=== PATIENT | female | born 1965 | race Caucasian/White ===

== ENCOUNTER 2016-09-11 22:08 | Emergency (ER) | payer OTHER ==
[2016-09-11 22:27] VITALS: BP 170/94; PULSE 83; TEMP 98.1; BMI 29.0
[2016-09-11] MEDS ORDERED: traMADol HCL 50 MG TABLET PO ONE (23:12)
[2016-09-11] MEDS ORDERED: traMADol HCL 50 MG TABLET ONE (23:15)
--- NOTE | 2016-09-11 23:16 | PDOC ---
History of Present Illness - General History Source: Patient Exam Limitations: No Limitations - History of Present Illness Initial Comments: 09/11/16 23:16 <Cody Gallagher - Last Filed: 09/11/16 23:11> - General History Source: Patient Exam Limitations: No Limitations - History of Present Illness Initial Comments: 09/11/16 23:39 The patient is a 51-year-old female with no significant past medical history, and presents to the emergency department with right shoulder pain s/p an accident at her job several months ago. The pain is exacerbated when she is lifting her right arm to abduction. She presents solely for pain control, as she has not been able to see her PCP to obtain pain medication. She is scheduled for right shoulder surgery in the next few weeks. The patient denies any other recent trauma or pain. The patient denies fever, chills, nausea, vomit, diarrhea and constipation. She denies shortness of breath, headache, and dizziness. Allergies: No known drug allergies Past Surgical History: None reported Social History: Denies smoking, ETOH, and recreational drug use. PCP: Dr. William Cruz <Minda Mckay - Last Filed: 09/11/16 23:41> - General Chief Complaint: Pain Stated Complaint: SHOULDER PAIN RIGHT Time Seen by Provider: 09/11/16 23:09 Past History - Past Medical History Anemia: Yes Asthma: Yes Cancer: No Cardiac Disorders: No CVA: No COPD: No CHF: No Dementia: No Diabetes: No GI Disorders: No Disorders: No HTN: No Hypercholesterolemia: Yes Kidney Stones: Yes Liver Disease: No Seizures: No Thyroid Disease: No Other medical history: rt rotator cuff tear - Surgical History Abdominal Surgery: No Appendectomy: No Cardiac Surgery: No Cholecystectomy: No Lung Surgery: No Neurologic Surgery: No Orthopedic Surgery: No - Immunization History Immunization Up to Date: Yes (FLU UP TO DATE) - Psycho/Social/Smoking Cessation Hx Anxiety: No Suicidal Ideation: No Smoking History: Never smoked Have you smoked in the past 12 months: No Information on smoking cessation initiated: No Hx Alcohol Use: No Drug/Substance Use Hx: No Substance Use Type: None Hx Substance Use Treatment: No <Cody Gallagher - Last Filed: 09/11/16 23:11> <Minda Mckay - Last Filed: 09/11/16 23:41> - Past Medical History Allergies/Adverse Reactions: Allergies Allergy/AdvReac Type Severity Reaction Status Date / Time No Known Drug Allergies Allergy Verified 09/11/16 22:18 Home Medications: Ambulatory Orders Simvastatin [Zocor -] 40 mg PO HS 08/27/13 Albuterol Sulfate Inhaler - [Ventolin HFA Inhaler -] 2 inh IH Q4H PRN #1 inh Hydrochlorothiazide [Hctz -] 25 mg PO DAILY 09/11/16 Tramadol HCl [Ultram -] 50 mg PO Q6H #20 tablet MDD 4 09/11/16 Review of Systems - Review of Systems Able to Perform ROS?: Yes Comments:: 09/11/16 23:40 CONSTITUTIONAL: Absent: fever, chills, diaphoresis, generalized weakness, malaise, loss of appetite HEENT: Absent: rhinorrhea, nasal congestion, throat pain, throat swelling, difficulty swallowing, mouth swelling, ear pain, eye pain, visual Changes CARDIOVASCULAR: Absent: chest pain, syncope, palpitations, irregular heart rate, lightheadedness , peripheral edema RESPIRATORY: Absent: cough, shortness of breath, dyspnea with exertion, orthopnea, wheezing, stridor, hemoptysis GASTROINTESTINAL: Absent: abdominal pain, abdominal distension, nausea, vomiting, diarrhea, constipation, melena, hematochezia GENITOURINARY: Absent: dysuria, frequency, urgency, hesitancy, hematuria, flank pain, genital pain MUSCULOSKELETAL: Present: (+) right shoulder pain Absent: joint swelling SKIN: Absent: rash, itching, pallor HEMATOLOGIC/IMMUNOLOGIC: Absent: easy bleeding, easy bruising, lymphadenopathy, frequent infections ENDOCRINE: Absent: unexplained weight gain, unexplained weight loss, heat intolerance, cold intolerance NEUROLOGIC: Absent: headache, focal weakness or paresthesias, dizziness, unsteady gait, seizure, mental status changes, bladder or bowel incontinence PSYCHIATRIC: Absent: anxiety, depression, suicidal or homicidal ideation, hallucinations. <Minda Mckay - Last Filed: 09/11/16 23:41> *Physical Exam - Vital Signs Last Vital Signs Temp Pulse Resp BP Pulse Ox 98.1 F 83 16 170/94 99 09/11/16 22:21 09/11/16 22:21 09/11/16 22:21 09/11/16 22:21 09/11/16 22:21 <Cody Gallagher - Last Filed: 09/11/16 23:11> - Vital Signs Last Vital Signs Temp Pulse Resp BP Pulse Ox 98.1 F 83 16 170/94 99 09/11/16 22:21 09/11/16 22:21 09/11/16 22:21 09/11/16 22:21 09/11/16 22:21 - Physical Exam Comments: 09/11/16 23:40 GENERAL: Well developed, well nourished. Awake and alert. No acute distress. HEENT: Normocephalic, atraumatic. PERRLA, EOMI. No conjunctival pallor. Sclera are non- icteric. Moist mucous membranes. Oropharynx is clear. NECK: Supple. Full ROM. No JVD. Carotid pulses 2+ and symmetric, without bruits. No thyromegaly. No lymphadenopathy. CARDIOVASCULAR: Regular rate and rhythm. No murmurs, rubs, or gallops. Distal pulses are 2+ and symmetric. PULMONARY: No evidence of respiratory distress. Lungs clear to auscultation bilaterally. No wheezing, rales or rhonchi. ABDOMINAL: Soft. Non-tender. Non-distended. No rebound or guarding. No organomegaly. Normoactive bowel sounds. MUSCULOSKELETAL Normal range of motion at all joints. No bony deformities or tenderness. No CVA tenderness. EXTREMITIES: (+) Tenderness diffusely on the right shoulder. No cyanosis. No clubbing. No edema. SKIN: Warm and dry. Normal capillary refill. No rashes. No jaundice. NEUROLOGICAL: Alert, awake, appropriate. Cranial nerves 2-12 intact. No deficits to light touch and temperature in face, upper extremities and lower extremities. No motor deficits in the in face, upper extremities and lower extremities. Normoreflexic in the upper and lower extremities. Normal speech. Toes are down-going bilaterally. Gait is normal without ataxia. PSYCHIATRIC: Cooperative. Good eye contact. Appropriate mood and affect. <Minda Mckay - Last Filed: 09/11/16 23:41> ED Treatment Course - Medications Given in the ED: ED Medications Discontinued Medications Generic Name Dose Route Start Last Admin Trade Name Freq PRN Reason Stop Dose Admin Tramadol HCl 50 mg 09/11/16 23:12 09/11/16 23:18 Ultram - PO 09/11/16 23:13 50 mg ONCE ONE Administration <Minda Mckay - Last Filed: 09/11/16 23:41> Medical Decision Making - Medical Decision Making 09/11/16 23:12 Dr. Gallagher: The scribe's documentation has been prepared under my direction and personally reviewed by me in its entirery. I confirm that the note above accurately reflects all work, treatment, procedures, and medical decision making performed by me. <Cody Gallagher - Last Filed: 09/11/16 23:11> *DC/Admit/Observation/Transfer - Discharge Dispostion Admit: No <Cody Gallagher - Last Filed: 09/11/16 23:11> - Attestations Scribe Attestion: 09/11/16 23:40 Documentation prepared by Minda Mckay, acting as medical affairs manager for Cody Gallagher DO. <Minda Mckay - Last Filed: 09/11/16 23:41> Diagnosis at time of Disposition: Right shoulder pain Qualifiers: Chronicity: chronic Qualified Code(s): M25.511 - Pain in right shoulder - Discharge Dispostion Disposition: HOME Condition at time of disposition: Stable - Prescriptions Prescriptions: Tramadol HCl [Ultram -] 50 mg PO Q6H #20 tablet MDD 4 - Referrals Referrals: William Cruz MD [Primary Care Provider] - - Patient Instructions Printed Discharge Instructions: DI for Shoulder Pain
== END 2016-09-11 23:23 | disposition home or self-care (01) ==
LOC: JER 22:08
DX: Z76.0 Encounter for issue of repeat prescription (principal); M25.511 Pain in right shoulder; J45.909 Unspecified asthma, uncomplicated; E78.00 Pure hypercholesterolemia, unspecified
CPT/HCPCS: 99282-25

== ENCOUNTER 2017-06-24 23:37 | Emergency (ER) | payer OTHER ==
[2017-06-25] VITALS: TEMP 98.3; BMI 31.8
--- NOTE | 2017-06-25 00:14 | PDOC ---
History of Present Illness - History of Present Illness Initial Comments: 06/25/17 00:23 The patient is a 52 year old female with history of hypertension, hyperlipidemia , who presents to the ED complaining of pleuritic, midsternal chest tightness that began today. The patient denies any fever or chills. She denies any palpitations or peripheral edema. Patient is noted to be hypertensive to 169/80 on ED evaluation. She states she has been medication compliant. No headache, visual changes, or paresthesias. PCP: Dr. Cruz. <Anuradha Guerrero - Last Filed: 06/25/17 00:23> <Nelda Gao - Last Filed: 06/25/17 04:07> - General Chief Complaint: Chest Pain Stated Complaint: CHEST PAIN Time Seen by Provider: 06/25/17 00:00 Past History <Anuradha Guerrero - Last Filed: 06/25/17 00:23> - Past Medical History Anemia: Yes Asthma: Yes Cancer: No Cardiac Disorders: No CVA: No COPD: No CHF: No Dementia: No Diabetes: No GI Disorders: No Disorders: No HTN: No Hypercholesterolemia: Yes Kidney Stones: Yes Liver Disease: No Seizures: No Thyroid Disease: No - Surgical History Abdominal Surgery: No Appendectomy: No Cardiac Surgery: No Cholecystectomy: No Lung Surgery: No Neurologic Surgery: No Orthopedic Surgery: No - Immunization History Immunization Up to Date: Yes (FLU UP TO DATE) - Suicide/Smoking/Psychosocial Hx Smoking History: Never smoked Have you smoked in the past 12 months: No Information on smoking cessation initiated: No Hx Alcohol Use: No Drug/Substance Use Hx: No Substance Use Type: None Hx Substance Use Treatment: No <Nelda Gao - Last Filed: 06/25/17 04:07> - Past Medical History Allergies/Adverse Reactions: Allergies Allergy/AdvReac Type Severity Reaction Status Date / Time No Known Drug Allergies Allergy Verified 06/24/17 23:59 Home Medications: Ambulatory Orders Simvastatin [Zocor -] 40 mg PO HS 08/27/13 Albuterol Sulfate Inhaler - [Ventolin HFA Inhaler -] 2 inh IH Q4H PRN #1 inh Hydrochlorothiazide [Hctz -] 25 mg PO DAILY 09/11/16 Tramadol HCl [Ultram -] 50 mg PO Q6H #20 tablet MDD 4 09/11/16 Azithromycin [Zithromax Tri-Amauri (3 DAYS) -] 500 mg PO DAILY #3 tablet 06/25/17 Review of Systems - Review of Systems Able to Perform ROS?: Yes Comments:: 06/25/17 00:26 GENERAL/CONSTITUTIONAL: No fever or chills. No weakness. HEAD, EYES, EARS, NOSE AND THROAT: No change in vision. No ear pain or discharge. No sore throat. CARDIOVASCULAR: +Pleuritic chest pain, mild SOB. No palpitations or peripheral edema. RESPIRATORY: No cough, wheezing, or hemoptysis. GASTROINTESTINAL: No nausea, vomiting, diarrhea or constipation. GENITOURINARY: No dysuria, frequency, or change in urination. MUSCULOSKELETAL: No joint or muscle swelling or pain. No neck or back pain. SKIN: No rash NEUROLOGIC: No headache, vertigo, loss of consciousness, or change in strength/ sensation. ENDOCRINE: No increased thirst. No abnormal weight change. HEMATOLOGIC/LYMPHATIC: No anemia, easy bleeding, or history of blood clots. ALLERGIC/IMMUNOLOGIC: No hives or skin allergy. <Anuradha Guerrero - Last Filed: 06/25/17 00:23> *Physical Exam - Vital Signs Last Vital Signs Temp Pulse Resp BP Pulse Ox 98.3 F 74 18 171/99 99 06/24/17 23:59 06/24/17 23:59 06/24/17 23:59 06/24/17 23:59 06/24/17 23:59 - Physical Exam Comments: 06/25/17 00:27 GENERAL: Awake, alert, and fully oriented, in no acute distress HEAD: No signs of trauma EYES: PERRLA, EOMI, sclera anicteric, conjunctiva clear ENT: Auricles normal inspection, hearing grossly normal, nares patent, oropharynx clear without exudates. Moist mucosa NECK: Normal ROM, supple, no lymphadenopathy, JVD, or masses LUNGS: Breath sounds equal, clear to auscultation bilaterally. No wheezes, and no crackles HEART: Regular rate and rhythm, normal S1 and S2, no murmurs, rubs or gallops ABDOMEN: Soft, nontender, normoactive bowel sounds. No guarding, no rebound. No masses EXTREMITIES: Normal range of motion, no edema. No clubbing or cyanosis. No cords, erythema, or tenderness NEUROLOGICAL: Cranial nerves II through XII grossly intact. Normal speech, normal gait SKIN: Warm, Dry, normal turgor, no rashes or lesions noted. <Anuradha Guerrero - Last Filed: 06/25/17 00:23> - Vital Signs Last Vital Signs Temp Pulse Resp BP Pulse Ox 98.3 F 74 18 171/99 99 06/24/17 23:59 06/24/17 23:59 06/24/17 23:59 06/24/17 23:59 06/24/17 23:59 <Nelda Gao - Last Filed: 06/25/17 04:07> ED Treatment Course - LABORATORY CBC & Chemistry Diagram: 06/25/17 00:34 06/25/17 00:34 <Nelda Gao - Last Filed: 06/25/17 04:07> Medical Decision Making - Medical Decision Making 06/25/17 04:05 Pt comes with SOB and javad tightness x 2 days. Pt has high BP. She states that she takes her HTN meds (HCTZ 25mg) as prescribed. She has elevated BP today. We will treat with diovan in the ER. Pt's CXR has increased markings bilaterally. Pt will be treated with zpak for an atypical pneumonia. She can follow with her PMD. 06/25/17 04:06 Pt's cardiac enzymes are normal. Pt's WBC count is normal also. Labs normal. <Nelda Gao - Last Filed: 06/25/17 04:07> *DC/Admit/Observation/Transfer - Attestations Scribe Attestion: 06/25/17 00:28 Documentation prepared by Anuradha Guerrero, acting as medical laboratory technicians for Nelda Gao MD. <Anuradha Guerrero - Last Filed: 06/25/17 00:23> - Discharge Dispostion Admit: No <Nelda Gao - Last Filed: 06/25/17 04:07> Diagnosis at time of Disposition: Atypical pneumonia - Discharge Dispostion Disposition: HOME Condition at time of disposition: Stable - Prescriptions Prescriptions: Azithromycin [Zithromax Tri-Amauri (3 DAYS) -] 500 mg PO DAILY #3 tablet - Referrals Referrals: William Cruz MD [Primary Care Provider] - - Patient Instructions Printed Discharge Instructions: DI for Atypical Chest Pain, DI for Atypical Pneumonia
[2017-06-25] MEDS ORDERED: VALSARTAN 40 MG TABLET (FP) PO ONE (00:23)
[2017-06-25 00:49] LABS: BASOPHIL 0.3 % (0-2.0); EOSINOPHIL 1.3 % (0-4.5); MCH 29.9 pg (25.7-33.7); MCHC 33.5 g/dl (32.0-36.0); MEAN CELL VOLUME 89.3 fl (80-96); MEAN PLT VOLUME 8.3 fl (7.5-11.1); NEUTROPHILS 55.7 % (42.8-82.8); PLATELET COUNT 246 K/MM3 (134-434); RDW 13.6 % (11.6-15.6); WHITE BLOOD COUNT 6.1 K/mm3 (4.0-10.0)
[2017-06-25 01:23] LABS: ALBUMIN 3.6 g/dl (3.4-5.0); ANION GAP 9 (8-16); CALCIUM 8.1 mg/dL (8.5-10.1); CO2 26 mmol/L (21-32); CREATININE 0.6 mg/dL (0.55-1.02); GLUCOSE,RANDOM 102 mg/dL (74-106); SGOT/AST 27 U/L (15-37); SGPT/ALT 36 U/L (12-78)
[2017-06-25] MEDS ORDERED: ALBUTEROL SO4 2.5/IPRATROPIUM 0.5 INH SOL 3 ML VIAL.NEB. NEB ONE (01:23)
[2017-06-25 01:27] LABS: ALK PHOS 75 U/L (45-117); BILIRUBIN,TOTAL 0.6 mg/dL (0.2-1.0); CPK 210 IU/L (26-192); TOT PROT 6.7 g/dl (6.4-8.2); TROPONIN I < 0.02 ng/ml (0.00-0.05)
[2017-06-25] MEDS ORDERED: AZITHROMYCIN 250 MG TABLET PO ONE (03:25)
[2017-06-25] MEDS ORDERED: AZITHROMYCIN 250 MG TABLET ONE (03:26)
[2017-06-25 03:27] VITALS: BP 158/89; PULSE 76
--- NOTE | 2017-06-26 07:10 | EKG ---
Test Reason : Blood Pressure : / mmHG Vent. 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
== END 2017-06-25 03:27 | disposition home or self-care (01) ==
LOC: JER 23:37
PROC: 3E0F7GC Introduction of Other Therapeutic Substance into Respiratory Tract, Via Natural or Artificial Opening (ICD-10-PCS; principal; 2017-06-24)
DX: J18.9 Pneumonia, unspecified organism (principal); D64.9 Anemia, unspecified; E78.00 Pure hypercholesterolemia, unspecified; Z87.442 Personal history of urinary calculi
CPT/HCPCS: 36415; 71020-TC; 80053; 82550; 82553; 84484; 85025; 93005; 93010; 94640; 99282-25

== ENCOUNTER 2018-04-26 07:43 | Day surgery (SDC) | payer OTHER ==
[2018-04-25 15:03] VITALS: BMI 31.8
--- NOTE | 2018-04-26 08:02 | HP ---
[facility]ellite [facility] - Chief Complaint Chief Complaint: right knee pain - Past Medical History Allergies/Adverse Reactions: Allergies Allergy/AdvReac Type Severity Reaction Status Date / Time No Known Drug Allergies Allergy Verified 04/25/18 15:04 ...LMP: 01/01/12 ...LMP Comment: mid march-irregular - Current Medications Current Medications: Home Medications Medication Instructions Recorded Simvastatin [Zocor -] 40 mg PO HS 08/27/13 Albuterol Sulfate Inhaler - 2 inh IH Q4H PRN #1 inh 12/24/14 [Ventolin HFA Inhaler -] Hydrochlorothiazide [Hctz -] 25 mg PO DAILY 09/11/16 Azithromycin [Zithromax Tri-Amauri (3 500 mg PO DAILY #3 tablet 06/25/17 DAYS) -] Oxycodone HCl/Acetaminophen 1 tab PO Q6H #20 tablet MDD 4 04/26/18 [Percocet 5-325 mg Tablet] Satellite Physical Exam - Physical Examination General Appearance: Well Nourished, Well Developed, Alert & Oriented x3 ENT: Clear Lung: Normal air movement Heart: Regular rate & rhythm Extremities: Other (right knee- + swelling, + ttp, decr rom, + mcmurrays, nvi MRI + mmt, djd) Neurological: Intact, Alert, Oriented Satellite Impression/Plan - Impression/Plan Impression: right knee internal derangement Operative Procedure: right knee arthroscopy Date to be Performed: 04/26/18
[2018-04-26] MEDS ORDERED: MIDAZOLAM HCL 2 MG/2 ML SINGLE DOSE VIAL ONE ×2 (08:51→10:17)
[2018-04-26] MEDS ORDERED: PROPOFOL 20 ML ONE ×2 (08:51→10:17)
[2018-04-26] MEDS ORDERED: ONDANSETRON 4 MG/2 ML VIAL ONE (10:17)
[2018-04-26] MEDS ORDERED: DEXAMETHASONE SOD PHOSPHATE 4 MG/1 ML VIAL ONE (10:17)
[2018-04-26] MEDS ORDERED: ONDANSETRON 4 MG/2 ML VIAL IVPUSH PRN (10:29)
[2018-04-26] MEDS ORDERED: oxyCODONE HCL 5 MG TABLET PO PRN (10:29)
[2018-04-26] MEDS ORDERED: LACTATED RINGERS SOLUTION 1,000 ML IV SCH (10:30)
[2018-04-26] MEDS ORDERED: LIDOCAINE 1%/EPI 1:100000 (20 ML MULTI DOSE VIAL) ONE (10:33)
[2018-04-26] MEDS ORDERED: BUPIVACAINE HCL/PF 0.75% 10 ML VIAL ONE (10:33)
[2018-04-26] MEDS ORDERED: BUPIVACAINE HCL/PF 0.75% 10 ML VIAL NR ONE (11:12)
[2018-04-26] MEDS ORDERED: LIDOCAINE 1%/EPI 1:100000 (20 ML MULTI DOSE VIAL) IJ ONE (11:12)
--- NOTE | 2018-04-26 11:25 | OP ---
Operative Note - Note: Operative Date: 04/26/18 Pre-Operative Diagnosis: internal derangement right knee Operation: arthroscopy right knee with partial medial meniscectomy and chondroplasty of the MFC Post-Operative Diagnosis: Same as Pre-op Surgeon: Wild Allen Anesthesia: General Estimated Blood Loss (mls): 0 Operative Report Dictated: Yes
[2018-04-26] MEDS ORDERED: KETOROLAC TROMETHAMINE 30 MG/1 ML VIAL ONE (11:50)
[2018-04-26] MEDS ORDERED: KETOROLAC TROMETHAMINE 30 MG/1 ML VIAL IVPUSH ONE (11:57)
[2018-04-26 12:31] VITALS: TEMP 98.2
[2018-04-26 13:17] VITALS: BP 130/81; PULSE 75
--- NOTE | 2018-04-27 09:15 | OP ---
DATE OF OPERATION: 04/26/2018 PREOPERATIVE DIAGNOSIS: Internal derangement or right knee. POSTOPERATIVE DIAGNOSIS: Internal derangement or right knee. PROCEDURE: Arthroscopy, right knee, with partial medial meniscectomy, chondroplasty of the medial femoral condyle. SURGICAL ATTENDING: Wild Allen MD ANESTHESIA: General with LMA. CLOSURE: 4-0 nylon. COMPLICATIONS: None. CONDITION: To recovery room in stable condition. DESCRIPTION OF OPERATIVE PROCEDURE: Patient was taken to the operating room on April 26, 2018. General anesthesia with LMA was administered by the anesthesiologist. Right lower extremity was prepped and draped in usual sterile fashion. The medial lateral infrapatellar portal sites were infiltrated with 1% Xylocaine with epinephrine. Both portals were then made with a 15 blade blunt trocar. The scope was placed in the lateral infrapatellar portal and up into the suprapatellar pouch. The knee was inflated with a cocktail of 10 mL of 1% Xylocaine, 10 mL of 0.5% Marcaine, 20 mL of arthroscopic saline. This was allowed to sit in the knee for 2 minutes before proceeding. The pouch was visualized to be clean. The medial and lateral gutters were visualized to be clean. The undersurface of the patella and trochlea were basically intact. With valgus stress on the knee the medial compartment was entered. On the medial meniscus, a complex tear of the posterior horn was debrided back to a smooth stable meniscal tissue with the meniscal biter and arthroscopic shaver. The medial femoral condyle was found to have a small nickel-sized grade 4 lesion at around 30 to 40 degrees of flexion. This was abraded, to have some bleeding bone, and articular cartilage was debrided using the shaver. Rest of the medial femoral condyle was intact as was the medial tibial plateau. At 90 degrees, the ACL was visualized and found to be intact. In the figure 4 position, the lateral compartment was entered. Lateral meniscus was visualized, probed and found to be intact. The lateral femoral condyle was run and found to be intact as was the lateral tibial plateau. The knee was irrigated with copious amounts of irrigation. The knee was drained of its fluid. The knee was inflated with 20 mL of 0.5% Marcaine for postoperative analgesia through the trocar. Both portals were then closed using 4-0 nylon suture. A sterile pressure dressing was applied. Patient was awakened from anesthesia and transferred to recovery room in stable condition. No complications. Estimated blood loss was negligible. Matthew [id number]
--- NOTE | 2018-04-29 17:09 | PATH ---
Surgical Pathology Report Patient Name: LACEY CMAPBELL [facility]. Rec. #: [id number] /Age/Gender: 1965 (Age: 53) / F Account: [id number] Location: [facility] SURGICAL Taken: 04/26/2018 Received: 04/26/2018 Reported: 04/29/2018 Physicians: Wild Allen M.D. Specimen(s) Received RIGHT KNEE SHAVINGS Clinical History Tear of right knee Final Diagnosis RIGHT KNEE SHAVINGS: FRAGMENTS OF FIBROCARTILAGINOUS TISSUE AND SYNOVIAL TISSUE WITH REACTIVE AND DEGENERATIVE CHANGES. Electronically Signed Evert Elam M.D. Gross Description Received in formalin, labeled "right knee shavings," is a 3.8 x 3.0 x 0.3 cm. aggregate of garcia-yellow soft tissue fragments. A medical representative portion is submitted in one cassette. No DL04/26/2018 saudi04/26/2018
== END 2018-04-26 13:59 | disposition home or self-care (01) ==
LOC: JASU-SURG 07:43
PROVIDERS: ATTEND Orthopaedic Surgery
PROC: 0SBC4ZZ Excision of Right Knee Joint, Percutaneous Endoscopic Approach (ICD-10-PCS; principal; 2018-04-26 09:30)
DX: M23.8X1 Other internal derangements of right knee (principal)
CPT/HCPCS: 84703; 88304-TC; 94760

== ENCOUNTER 2022-02-02 04:24 | Day surgery (SDC) | payer OTHER ==
[2022-01-30 13:41] VITALS: BMI 31.8
[2022-02-02 11:45] VITALS: TEMP 97.3
[2022-02-02 12:17] VITALS: BP 148/90; PULSE 74
== END 2022-02-02 12:37 | disposition home or self-care (01) ==
LOC: JASU-ENDO 04:24
PROVIDERS: ATTEND Internal Medicine Gastroenterology
PROC: 0DB78ZX Excision of Stomach, Pylorus, Via Natural or Artificial Opening Endoscopic, Diagnostic (ICD-10-PCS; 2022-02-02)
PROC: 0DB68ZX Excision of Stomach, Via Natural or Artificial Opening Endoscopic, Diagnostic (ICD-10-PCS; 2022-02-02)
PROC: 0DB98ZX Excision of Duodenum, Via Natural or Artificial Opening Endoscopic, Diagnostic (ICD-10-PCS; principal; 2022-02-02 10:00)
DX: K29.50 Unspecified chronic gastritis without bleeding (principal)
CPT/HCPCS: 88305-TC; 88342-TC

== ENCOUNTER 2022-02-23 04:15 | Day surgery (SDC) | payer OTHER ==
[2022-02-20 10:57] VITALS: BMI 31.8
[2022-02-23 11:18] VITALS: TEMP 98.6
[2022-02-23 11:54] VITALS: BP 153/99; PULSE 58
== END 2022-02-23 12:10 | disposition home or self-care (01) ==
LOC: JASU-ENDO 04:15
PROVIDERS: ATTEND Internal Medicine Gastroenterology
PROC: 0DBP8ZX Excision of Rectum, Via Natural or Artificial Opening Endoscopic, Diagnostic (ICD-10-PCS; principal; 2022-02-23 09:30)
DX: Z12.11 Encounter for screening for malignant neoplasm of colon (principal); K57.30 Diverticulosis of large intestine without perforation or abscess without bleeding; K64.8 Other hemorrhoids; K62.1 Rectal polyp
CPT/HCPCS: 88305-TC

== ENCOUNTER 2023-08-26 09:18 | Emergency (ER) | payer OTHER ==
[2023-08-26 09:29] VITALS: BP 144/91; PULSE 98; RESP 18; BMI 24.7
[2023-08-26] MEDS ORDERED: IBUPROFEN 600 MG TABLET (FP) PO ONE ×2 (09:44→09:48)
[2023-08-26] MEDS ORDERED: DEXAMETHASONE SOD PHOSPHATE 10 MG/1 ML VIAL PO ONE (10:03)
[2023-08-26] MEDS ORDERED: ALBUTEROL SO4 2.5/IPRATROPIUM 0.5 INH SOL 3 ML VIAL.NEB. NEB ONE (10:22)
[2023-08-26] MEDS ORDERED: DEXAMETHASONE 4 MG TABLET (FP) ONE (10:23)
[2023-08-26] MEDS: ALBUTEROL SO4 2.5/IPRATROPIUM 0.5 INH SOL 3 ML VIAL.NEB. NEB SCH ×4 (10:29→10:53)
[2023-08-26 11:05] VITALS: TEMP 99
== END 2023-08-26 11:04 | disposition home or self-care (01) ==
LOC: JERFT 09:18
PROC: 3E033GC Introduction of Other Therapeutic Substance into Peripheral Vein, Percutaneous Approach (ICD-10-PCS; principal; 2023-08-26)
DX: R05.9 Cough, unspecified (principal); R07.9 Chest pain, unspecified; R50.9 Fever, unspecified; R09.3 Abnormal sputum; J10.1 Influenza due to other identified influenza virus with other respiratory manifestations; J45.21 Mild intermittent asthma with (acute) exacerbation; Z20.822 Contact with and (suspected) exposure to COVID-19
CPT/HCPCS: 0241U-QW; 71048-TC-FY; 99284-25; J1100

== ENCOUNTER 2024-07-09 15:05 | Emergency (ER) | payer OTHER ==
[2024-07-09 15:24] VITALS: PULSE 78; RESP 18; TEMP 98.8; BMI 25.7
[2024-07-09] MEDS ORDERED: ACETAMINOPHEN INJECTION 100 ML ONE (16:26)
[2024-07-09] MEDS ORDERED: FAMOTIDINE 20 MG/50 ML IVPB 20 MG/50 ML MG IVPB ONE (16:27)
[2024-07-09] MEDS ORDERED: MAG HYDROX/AL HYDROX/SIMETH 30 ML UNIT-DOSE CUP ONE (16:27)
[2024-07-09 17:19] LABS: BASO % 0.4 % (0-2.0); EOS % 1.3 % (0-4.5); HEMATOCRIT 40.3 % (32.4-45.2); HEMOGLOBIN 13.3 GM/dL (10.7-15.3); LYMPH % 30.1 % (8-40); MCH 29.2 pg (25.7-33.7); MCHC 32.9 g/dl (32.0-36.0); MEAN CELL VOLUME 88.7 fl (80-96); MEAN PLT VOLUME 7.8 fl (7.5-11.1); MONO % 5.7 % (3.8-10.2); NEUT % 62.5 % (42.8-82.8); PLATELET COUNT 300 10^3/uL (134-434); RBC 4.55 M/mm3 (3.60-5.2); RDW 13.7 % (11.6-15.6); WHITE BLOOD COUNT 7.7 K/mm3 (4.0-10.0)
[2024-07-09 18:00] LABS: POTASSIUM 4.9 mmol/L (3.5-5.1)
[2024-07-09] MEDS: MAG HYDROX/AL HYDROX/SIMETH 30 ML UNIT-DOSE CUP PO ONE (18:00)
[2024-07-09] MEDS: ACETAMINOPHEN 1000 MG/100 ML BAG IVPB ONE (18:00)
[2024-07-09] MEDS: FAMOTIDINE 20 MG/50 ML IVPB 20 MG/50 ML MG IVPB ONE (18:01)
[2024-07-09 18:02] LABS: CALCIUM 9.2 mg/dL (8.5-10.1)
[2024-07-09 18:03] LABS: BLOOD UREA NITROGEN 14.8 mg/dL (7-18)
[2024-07-09 18:06] LABS: CREATININE 0.7 mg/dL (0.55-1.3)
[2024-07-09 18:07] LABS: BILIRUBIN,TOTAL 0.7 mg/dL (0.2-1)
[2024-07-09 18:08] LABS: TOT PROT 7.3 g/dl (6.4-8.2)
[2024-07-09 18:47] VITALS: BP 128/78
== END 2024-07-09 18:54 | disposition home or self-care (01) ==
LOC: JER 15:05
PROC: 3E033GC Introduction of Other Therapeutic Substance into Peripheral Vein, Percutaneous Approach (ICD-10-PCS; principal; 2024-07-09)
PROC: 3E033NZ Introduction of Analgesics, Hypnotics, Sedatives into Peripheral Vein, Percutaneous Approach (ICD-10-PCS; 2024-07-09)
DX: R07.2 Precordial pain (principal); R06.2 Wheezing; R51.9 Headache, unspecified
CPT/HCPCS: 36415; 71046-TC-FY; 80053; 84484; 85025; 93005; 93010; 99285-25; J0131